=== PATIENT | female | born 1990 | race Caucasian/White ===

== ENCOUNTER 2016-06-19 11:32 | Inpatient (IN) | payer OTHER ==
[2016-06-22] MEDS ORDERED: BUTORPHANOL 1 MG/ML 1 ML VIAL IV PRN (16:34)
[2016-06-22] MEDS ORDERED: ALBUTEROL NEBULIZED 2.5 MG/3 ML INHALATION PRN (16:34)
[2016-06-22] MEDS ORDERED: DINOPROSTONE 10 MG INSERT.ER VAGINAL ONE (16:34)
[2016-06-22 17:06] VITALS: BMI 36.8
--- NOTE | 2016-06-22 17:33 | P.HPOB ---
History of Present Illness H&P Date: 06/22/16 Chief Complaint: Patient is here for postdates induction of labor. This patient is a pleasant 26-year-old 1 para 0 female estimated date of confinement 06/19/2016 estimated gestational age 40-3/7 weeks gestation who presents for postdates induction of labor. Patient's care has been uncomplicated. Review of Systems Constitutional: Denies chills, Denies fever Ears, nose, mouth and throat: Denies headache, Denies sore throat Cardiovascular: Denies chest pain, Denies shortness of breath Respiratory: Denies cough Gastrointestinal: Reports heartburn Genitourinary: Reports Menstruation: Reports amenorrhea Musculoskeletal: Denies myalgias Integumentary: Denies pruritus, Denies rash Neurological: Denies numbness, Denies weakness Psychiatric: Denies anxiety, Denies depression Endocrine: Denies fatigue, Denies weight change Past Medical History Past Medical History: Asthma History of Any Multi-Drug Resistant Organisms: None Reported Past Surgical History: Tonsillectomy Past Anesthesia/Blood Transfusion Reactions: No Reported Reaction Past Psychological History: No Psychological Hx Reported Smoking Status: Never smoker Past Drug Use History: None Reported - Past Family History Mother Family Medical History: No Reported History Medications and Allergies Home Medications Medication Instructions Recorded Confirmed Type Albuterol Inhaler [Ventolin Hfa 2 inhalation .ROUTE ONCE PRN 06/15/16 06/15/16 History Inhaler] Allergies Allergy/AdvReac Type Severity Reaction Status Date / Time hydrocodone [From Vicodin] Allergy Intermediate Anaphylaxis Verified 06/22/16 16 :33 Exam - Vital Signs Vital signs: Vital Signs Temp Pulse Resp BP 06/22/16 16:30 97.4 F L 85 16 132/85 Intake and Output 06/22/16 06/22/16 06/22/16 06:59 14:59 22:59 Other: Weight 97.522 kg Patient Weight 06/23/16 06:59 Weight 97.522 kg - OBG Physical Exam Abdomen: bowel sounds normal, no diffuse tenderness, no bruit present, no guarding noted, no hepatomegaly, no splenomegaly, no mass Vulva: both: normal Vagina: normal moisture, no discharge Cervix: Cervix is closed and uneffaced. Cervix: no lesion, no discharge Uterus: enlarged (Fundal height is consistent with a term .) Results blood work shows she is AB+, rubella immune, RPR nonreactive, hepatitis B negative, HIV nonreactive, group B strep was negative, ultrasounds have been normal, Glucola was abnormal with a normal three-hour gtt. Assessment and Plan (1) Post-dates Narrative/Plan: This is a pleasant 26-year-old 1 para 0 female 40-3/7 weeks' gestation requesting postdates induction of labor. Patient's cervix is unfavorable therefore we are going to proceed with Cervidil induction of labor. Patient does understand the increased risk of section due to the unfavorable cervix. Status: Acute
[2016-06-23] MEDS ORDERED: CARBOPROST TROMETHAMINE 250 MCG/ML 1 ML AMP IM PRN (05:11)
[2016-06-23] MEDS ORDERED: METHYLERGONOVINE 0.2 MG/ML 1 ML AMP IM PRN (05:11)
[2016-06-23] MEDS ORDERED: OXYTOCIN 30 UNITS/500 ML NS 30 UNIT in SALINE 1 500ML.BAG IV SCH (05:11)
[2016-06-23] MEDS ORDERED: LIDOCAINE 1% (PF) 10 MG/ML (30 ML SDV) SQ PRN (05:11)
[2016-06-23] MEDS ORDERED: TERBUTALINE 1 MG/ML VIAL SQ PRN (05:11)
[2016-06-23] MEDS ORDERED: OXYTOCIN 10 UNIT/ML 1 ML VIAL IM PRN (05:11)
[2016-06-23] MEDS: LACTATED RINGERS 1,000 ML IV SCH ×3 (05:30→14:12)
[2016-06-23 05:43] LABS: Basophils % (A) 0 %; CHCM 34.8; Eosinophils # (A) 0.1 k/uL (0-0.7); Eosinophils % (A) 1 %; HCT 36.1 % (34.0-46.0); HGB 12.1 gm/dL (11.4-16.0); Luc # (Auto) 0.29; Luc % (Auto) 3; Lymphocytes # (A) 1.7 k/uL (1.0-4.8); Lymphocytes % (A) 16 %; MCH 30.1 pg (25.0-35.0); MCHC 33.6 g/dL (31.0-37.0); MCV 89.5 fL (80.0-100.0); Mean Platelet Volume 8.5; Monocytes # (A) 0.5 k/uL (0-1.0); Monocytes % (A) 5 %; Neutrophils # (A) 7.6 k/uL (1.3-7.7); Neutrophils % (A) 75 %; RBC 4.04 m/uL (3.80-5.40); RDW 14.4 % (11.5-15.5); WBC 10.1 k/uL (3.8-10.6); WBC (Perox) 11.01
[2016-06-23] MEDS ORDERED: fentaNYL (PF) 50 MCG/ML 5 ML AMP ONE (08:58)
[2016-06-23] MEDS ORDERED: SODIUM CHLORIDE 0.9% 100 ML BAG ONE (08:58)
[2016-06-23] MEDS ORDERED: BUPIVACAINE (PF) 0.25% 30 ML VIAL ONE (08:58)
[2016-06-23] MEDS ORDERED: BUPIVACAINE (PF) 0.25% 25 ML, fentaNYL (PF) 200 MCG in SODIUM CHLORIDE 0.9% 71 ML EPIDURAL ONE (09:14)
[2016-06-23] MEDS ORDERED: AMPICILLIN 2,000 MG in SODIUM CHLORIDE 0.9% 100 ML IVPB STA (17:31)
[2016-06-23] MEDS ORDERED: ceFAZolin 2 GM in SODIUM CHLORIDE 0.9% 100 ML IVPB ONE (19:27)
[2016-06-23] MEDS ORDERED: CITRIC ACID-SODIUM CITRATE 15 ML CUP PO ONE (19:27)
[2016-06-23] MEDS ORDERED: fentaNYL (PF) 50 MCG/ML 2 ML AMP ONE (19:45)
[2016-06-23] MEDS ORDERED: ONDANSETRON 4 MG/2 ML VIAL ONE (19:45)
[2016-06-23] MEDS ORDERED: KETOROLAC 30 MG/ML 1 ML VIAL ONE (19:45)
[2016-06-23] MEDS ORDERED: OXYTOCIN 10 UNIT/ML 1 ML VIAL IM ONE (19:45)
[2016-06-23] MEDS ORDERED: ceFAZolin 1,000 MG VIAL ONE (19:45)
[2016-06-23] MEDS ORDERED: ePHEDrine 50 MG/ML 1 ML AMP ONE (19:45)
[2016-06-23] MEDS ORDERED: LACTATED RINGERS 1,000 ML BAG IV ONE (19:45)
[2016-06-23] MEDS ORDERED: ACETAMINOPHEN TAB 325 MG TAB PO PRN (20:34)
[2016-06-23] MEDS ORDERED: ZOLPIDEM 5 MG TAB PO PRN (20:34)
[2016-06-23] MEDS ORDERED: IBUPROFEN 600 MG TAB PO PRN (20:34)
[2016-06-23] MEDS ORDERED: diphenhydrAMINE 50 MG/ML 1 ML VIAL IVP PRN (20:34)
[2016-06-23] MEDS ORDERED: diphenhydrAMINE 25 MG CAP PO PRN (20:34)
[2016-06-23] MEDS ORDERED: SIMETHICONE 80 MG CHEWABLE PO PRN (20:34)
[2016-06-23] MEDS ORDERED: METOCLOPRAMIDE 5 MG/ML 2 ML VIAL IVP PRN (20:34)
[2016-06-23] MEDS ORDERED: NALOXONE 0.4 MG/ML 1 ML VIAL IV PRN (20:38)
[2016-06-23] MEDS ORDERED: HYDROmorphone PCA 5 MG/25 ML SYRINGE IV PRN (20:38)
--- NOTE | 2016-06-23 21:03 | P.OP ---
Date of Procedure: 06/23/16 Preoperative Diagnosis: #1: 40-4/7 week intrauterine . #2: Cephalopelvic dystocia. Postoperative Diagnosis: Same Procedure(s) Performed: Primary low transverse section. Anesthesia: epidural Surgeon: Jameson Gomes Bench Assembly Inspector #1: Gerardo Teixeira Estimated Blood Loss (ml): 800 Pathology: other Condition: stable Disposition: floor Indications for Procedure: Please see dictated H&P for intimate details of this patient's admission. Brief summary is a pleasant 26-year-old 1 para 0 female 40-4/7 weeks gestation is admitted last evening for Cervidil placement secondary to postdates . Patient is admitted has a Cervidil placed and this morning is 2 cm dilated. Patient has artificial rupture membranes for clear fluid gets to throughout the day approximately 7-8 cm dilated but gets caput and no descent past -1 station. At this time we recommend proceeding with section and patient agrees. Patient does understand the surgery and risks including risks of infection, bleeding, possible injury to bowel, bladder , vessels, and/or other organs. Patient stands risk of DVT and pulmonary embolism. All the patient's questions are answered written consent is obtained. Operative Findings: This is a vigorous viable female Apgars are 8 and 9 and delivery time is 2001 hrs. Infant was occiput transverse/occiput posterior. weight was 8 lbs. 8 oz Description of Procedure: This patient has a Alcantar catheter placed to straight drain. She subsequently taken to the operating room where her epidural is dosed up for sufficient level of surgery. With this done she has an abdominal prep and drape. Scalpel is then taken and a Pfannenstiel skin incision is then made. A second scalpel is then taken down the fascia and the fascia scored with a knife. Fascial incision extended bilaterally using the Tejada scissors. Fascia is dissected off the rectus muscles sharply. Rectus muscles are the peritoneum identified and entered sharply. Peritoneal incision extended superiorly and inferiorly without difficulty. Bladder blade is then placed. Bladder peritoneum was then taken sharply off the lower uterine segment with Metzenbaum scissors. Scalpels taken a low transverse uterine incision is then made. Using a hemostat I enter the uterine cavity bluntly and there is loss of clear fluid. Infant's head is found to be occiput posterior/ transverse. 's head is guided through the incision and mouth and nares are bulb suctioned. We then have delivery the anterior and posterior shoulder and rest this infant's body. This is a vigorous viable female Apgars are 8 and 9 delivery time is 2001 hours. After delivery of the infant the umbilical cords doubly clamped and cut and appears to be trivascular. The placenta is then manually extracted intact. Uterus is then externalized and uterine incision demarcated with Sarmiento clamps. Uterine incision then closed using 0 Vicryl running locked fashion 2 layers. Good hemostasis is noted. Bladder peritoneum was then closed using a 3-0 Vicryl running fashion. Excess fluid is removed from the abdomen and pelvis. Uterus tubes and ovaries appear normal for term gestation. Uterus placed back into the abdomen. Parietal peritoneum was then closed using 0 Vicryl running fashion. Rectus muscles are reapproximated in 0 Vicryl interrupted fashion. Fascia is then closed using 0 PDS. Fascial incision is intact and hemostatic. Subcutaneous tissues and closed using a 3-0 Vicryl. Skin is and closed using tae. Counts are correct 3. There are no complications. Infant and mother are taken together birthing suite in satisfactory condition.
[2016-06-23] MEDS ORDERED: AMPICILLIN 1,000 MG in SODIUM CHLORIDE 0.9% 50 ML IVPB SCH (22:00)
[2016-06-23] MEDS: OXYTOCIN 30 UNITS/500 ML NS 30 UNIT in SALINE 1 500ML.BAG IV SCH (23:11)
[2016-06-24] MEDS: LACTATED RINGERS 1,000 ML IV SCH ×3 (00:49→15:22)
[2016-06-24] MEDS: ceFAZolin 2 GM in SODIUM CHLORIDE 0.9% 100 ML IVPB SCH ×2 (01:00→08:50)
[2016-06-24] MEDS: OXYTOCIN 30 UNITS/500 ML NS 30 UNIT in SALINE 1 500ML.BAG IV SCH (02:24)
[2016-06-24] MEDS: KETOROLAC 30 MG/ML 1 ML VIAL IVP PRN ×3 (05:23→18:52)
--- NOTE | 2016-06-24 05:53 | P.PNOBGPC ---
Subjective - Subjective Patient reports: Reports appetite normal, Reports voiding normally, Reports pain well controlled, Reports ambulating normally : doing well Objective - Vital Signs Latest vital signs: Vital Signs Temp Pulse Resp BP Pulse Ox 06/24/16 00:00 97.4 F L 94 16 135/76 98 06/23/16 22:30 96.2 F L 78 16 118/65 97 06/23/16 22:00 97.6 F 96 16 139/77 97 06/23/16 21:30 96.2 F L 108 H 16 157/70 97 06/23/16 21:15 105 H 16 156/70 97 06/23/16 21:00 97.7 F 112 H 16 144/63 97 06/23/16 20:45 98.0 F 98 16 128/66 96 06/23/16 20:38 96 06/23/16 20:30 97.7 F 101 H 16 125/84 97 Intake and Output 06/23/16 06/23/16 06/24/16 14:59 22:59 06:59 Intake Total 2000 2950 Output Total 1300 800 Balance 2000 1650 -800 Intake: IV 2000 1650 Lactated Ringers 1,000 ml 2000 300 @ 125 mls/hr IV .Q8H [facility] Rx#:[id number] Intake, IV Titration 100 Amount ceFAZolin 2 gm In Sodium 100 Chloride 0.9% 100 ml @ 100 mls/hr IVPB Q8HR [facility] Rx#:[id number] Oral 1200 Output: Urine 500 Estimated Blood Loss 800 800 Other: Weight 97.522 kg Patient Weight 06/24/16 06:59 Weight 97.522 kg - Exam Lungs: bilateral: normal Chest: Normal S1, Normal S2 Extremities: Present: normal Abdomen: Present: normal appearance, soft. Absent: distention, tenderness Incision: Present: normal, dry, intact Uterus: Present: normal, firm Assessment and Plan (1) Post-dates Narrative/Plan: Postoperative day #1. Patient is resting without complaints. Vital signs are stable she is afebrile. Uterus is firm nontender she's having normal lochia. Plan today is to check a CBC, encouraged patient to ambulate, advance her diet. Continue routine postoperative care Current Visit: Yes Status: Acute Code(s): O48.0 - POST-TERM SNOMED Code(s): 33748323 (2) delivery delivered Current Visit: Yes Status: Acute Code(s): O82 - ENCOUNTER FOR DELIVERY WITHOUT INDICATION SNOMED Code(s): 952648367
[2016-06-24] MEDS ORDERED: Acetaminophen-Codeine 300-30mg TAB PO PRN (05:58)
[2016-06-24 08:14] LABS: Basophils % (A) 0 %; CH 30.8; CHCM 33.9; Eosinophils % (A) 0 %; HCT 28.2 % (34.0-46.0); HDW 2.91; Luc # (Auto) 0.18; Luc % (Auto) 2; Lymphocytes # (A) 1.1 k/uL (1.0-4.8); Lymphocytes % (A) 10 %; MCH 30.7 pg (25.0-35.0); MCHC 33.6 g/dL (31.0-37.0); MCV 91.3 fL (80.0-100.0); Mean Platelet Volume 9.1; Monocytes # (A) 0.6 k/uL (0-1.0); Monocytes % (A) 5 %; Neutrophils % (A) 83 %; RBC 3.09 m/uL (3.80-5.40); RDW 14.4 % (11.5-15.5); WBC 10.8 k/uL (3.8-10.6); WBC (Perox) 11.69
[2016-06-24 08:16] LABS: HGB 9.5 gm/dL (11.4-16.0)
[2016-06-24] MEDS: SENNOSIDES-DOCUSATE SODIUM 1 EACH TAB PO SCH ×2 (08:51→22:58)
[2016-06-24] MEDS: Acetaminophen-Codeine 300-30mg TAB PO PRN (15:20)
[2016-06-25] MEDS: Acetaminophen-Codeine 300-30mg TAB PO PRN ×2 (02:03→08:12)
--- NOTE | 2016-06-25 07:02 | P.PNOBGPC ---
Subjective - Subjective Patient reports: Reports appetite normal, Reports voiding normally, Reports pain well controlled, Reports ambulating normally : doing well Objective - Vital Signs Latest vital signs: Vital Signs Temp Pulse Resp BP Pulse Ox 06/25/16 00:30 98.6 F 85 11 L 107/59 06/24/16 20:00 98.1 F 100 10 L 113/64 06/24/16 16:00 98.3 F 102 H 16 122/70 06/24/16 12:00 97.9 F 98 18 121/68 98 06/24/16 08:00 97.5 F L 86 16 119/74 - Exam Lungs: bilateral: normal Chest: Normal S1, Normal S2 Extremities: Present: normal Abdomen: Present: normal appearance, soft. Absent: distention, tenderness Incision: Present: normal, dry, intact Uterus: Present: normal, firm - Labs Labs: Abnormal Lab Results - Last 24 Hours (Table) 06/24/16 Range/Units 07:46 WBC 10.8 H (3.8-10.6) k/uL RBC 3.09 L (3.80-5.40) m/uL Hgb 9.5 L D (11.4-16.0) gm/dL Hct 28.2 L (34.0-46.0) % Plt Count 146 L (150-450) k/uL Neutrophils # 9.0 H (1.3-7.7) k/uL Assessment and Plan (1) Post-dates Narrative/Plan: Postoperative day #2. Patient is resting without new complaints. Vital signs are stable she is afebrile. She's tolerating regular diet, ambulating, urinating without difficulty. Patient is considering going home later today. My impression is that this is a normal postoperative course, and she is stable to go home today if she wishes. Current Visit: Yes Status: Acute Code(s): O48.0 - POST-TERM SNOMED Code(s): 82332614 (2) delivery delivered Current Visit: Yes Status: Acute Code(s): O82 - ENCOUNTER FOR DELIVERY WITHOUT INDICATION SNOMED Code(s): 707705854
--- NOTE | 2016-06-25 07:05 | P.DS ---
Providers Date of admission: 06/22/16 16:21 Expected date of discharge: 06/25/16 Attending physician: Jameson Gomes Primary care physician: Taiwo Chaves - Discharge Diagnosis(es) (1) Post-dates Current Visit: Yes Status: Acute (2) delivery delivered Current Visit: Yes Status: Acute Hospital Course: Please see dictated H&P for intimate details of this patient's admission. Brief summary is a pleasant 26-year-old 1 para 0 female 40-4/7 weeks gestation admitted for two-stage induction of labor subsequent was on have a primary section for cephalopelvic dystocia. Please see dictated delivery note/operative note. Postoperative patient does well and on postoperative 2 is felt be stable for discharge home follow up with me in 1 week for an incision check. Procedures: Induction of labor and primary low transverse section. Patient Condition at Discharge: Good Plan - Discharge Summary New Discharge Prescriptions: Acetaminophen-Codeine 300-30mg [Tylenol w/codeine #3] 1 - 2 each PO Q4HR PRN # 40 tab PRN Reason: Pain Ibuprofen [Motrin] 600 mg PO Q6HR PRN #40 tab PRN Reason: Mild Pain Or Fever >= 100.5 Discharge Medication List Albuterol Inhaler [Ventolin Hfa Inhaler] 2 inhalation .ROUTE ONCE PRN 06/15/16 [ History] Acetaminophen-Codeine 300-30mg [Tylenol w/codeine #3] 1 - 2 each PO Q4HR PRN # 40 tab 06/24/16 [Rx] Ibuprofen [Motrin] 600 mg PO Q6HR PRN #40 tab 06/24/16 [Rx] Follow up Appointment(s)/Referral(s): Jameson Gomes MD [STAFF PHYSICIAN] - 07/04/16 8:30 am (Patient also has a 6 weeks' check on August 03 9:30 AM.) Patient Instructions/Handouts: (DC) Activity/Diet/Wound Care/Special Instructions: No strenuous activity or heavy lifting for 6 weeks. Please call if any fever, chills, excessive vaginal bleeding, and/or abdominal pain. No intercourse for 6 weeks. Discharge Disposition: HOME SELF-CARE
[2016-06-25] MEDS: SENNOSIDES-DOCUSATE SODIUM 1 EACH TAB PO SCH (08:12)
[2016-06-25 08:40] VITALS: BP 136/70; PULSE 88; RESP 16; TEMP 98.3
[2016-06-25] MEDS: LACTATED RINGERS 1,000 ML IV SCH (09:54)
== END 2016-06-25 13:00 | disposition home or self-care (01) | DRG 766 ==
LOC: 4FBP 06-22 16:21
PROVIDERS: ADMIT Obstetrics & Gynecology; ATTEND Obstetrics & Gynecology
DX: O48.0 Post-term pregnancy (principal); O66.9 Obstructed labor, unspecified; J45.909 Unspecified asthma, uncomplicated; Z37.0 Single live birth; O99.52 Diseases of the respiratory system complicating childbirth; Z3A.40 40 weeks gestation of pregnancy; Z79.899 Other long term (current) drug therapy; Z88.5 Allergy status to narcotic agent
CPT/HCPCS: 85025; 88307

== ENCOUNTER 2017-11-23 05:44 | Inpatient (IN) | payer OTHER ==
--- NOTE | 2017-11-22 07:59 | P.HPOB ---
History of Present Illness H&P Date: 11/22/17 Chief Complaint: Repeat C/S This patient is a pleasant 27 yr female EDC 11/24/2017 estimated gestational age 39 6/7 weeks who presents for elective repeat C/S. has been complicated by polyhydraminos (32cm) of unknown etiology that was diagnosed at 35wks. She has been watched with NSTs. She also was late to seek care, but this was due to insurance issues. Review of Systems Gastrointestinal: Reports heartburn Genitourinary: Reports Menstruation: Reports amenorrhea Past Medical History Past Medical History: Asthma History of Any Multi-Drug Resistant Organisms: None Reported Past Surgical History: Section, Tonsillectomy Past Anesthesia/Blood Transfusion Reactions: No Reported Reaction Past Psychological History: No Psychological Hx Reported Smoking Status: Never smoker Past Alcohol Use History: None Reported Past Drug Use History: None Reported - Past Family History Mother Family Medical History: No Reported History Medications and Allergies Home Medications Medication Instructions Recorded Confirmed Type Albuterol Inhaler [Ventolin Hfa 2 inhalation .ROUTE ONCE PRN 06/15/16 06/15/16 History Inhaler] Acetaminophen-Codeine 300-30mg 1 - 2 each PO Q4HR PRN #40 tab 06/24/16 Rx [Tylenol w/codeine #3] Ibuprofen [Motrin] 600 mg PO Q6HR PRN #40 tab 06/24/16 Rx Allergies Allergy/AdvReac Type Severity Reaction Status Date / Time hydrocodone [From Vicodin] Allergy Intermediate Anaphylaxis Verified 06/22/16 16 :33 Exam - OBG Physical Exam Abdomen: bowel sounds normal, no diffuse tenderness, no bruit present, no guarding noted, no hepatomegaly, no splenomegaly, no mass Vulva: both: normal Vagina: normal moisture, no discharge Cervix: no lesion, no discharge Uterus: enlarged (Fundal height is 45cm) Results labs: AB positive, Rubella Immune, [id number] negative, Glucola 158 (normal 3hr GTT 84, 178, 116, 122), GBS was positive. Ultrasound shows polyhydraminos with BRENDA 30-32 and LGA. Assessment and Plan Assessment: This is a pleasant 27 yr old female 39 and 6/7 weeks gestation who presents for elective repeat cesearan section. She and I have discussed this surgery and risks: infection, bleeding, possible injury to bowel/bladder/ vessels and/or other organs. She understands the risks of DVT/PE. All of the patients questions were answered and a written consent was obtained. (1) Previous delivery affecting Status: Acute Code(s): O34.219 - MATERNAL CARE FOR UNSP TYPE SCAR FROM PREVIOUS DEL SNOMED Code(s): 732229124 (2) Polyhydramnios affecting Status: Acute Code(s): O40.9XX0 - POLYHYDRAMNIOS, UNSP TRIMESTER, NOT APPLICABLE OR UNSP SNOMED Code(s): 97130651 (3) Group B streptococcal carriage complicating Status: Acute Code(s): O99.820 - STREPTOCOCCUS B CARRIER STATE COMPLICATING SNOMED Code(s): 022408882745606
[2017-11-22 15:20] VITALS: BMI 39.4
[2017-11-23] MEDS ORDERED: LACTATED RINGERS 1,000 ML IV ONE (05:52)
[2017-11-23] MEDS ORDERED: LACTATED RINGERS 1,000 ML IV SCH (05:52)
[2017-11-23] MEDS ORDERED: CITRIC ACID-SODIUM CITRATE 15 ML CUP PO ONE (05:52)
[2017-11-23 06:15] LABS: Basophils % (A) 0 %; Eosinophils # (A) 0.1 k/uL (0-0.7); Eosinophils % (A) 1 %; Lymphocytes # (A) 1.7 k/uL (1.0-4.8); Lymphocytes % (A) 21 %; MCH 27.9 pg (25.0-35.0); MCHC 33.3 g/dL (31.0-37.0); MCV 83.8 fL (80.0-100.0); Mean Platelet Volume 8.6; Monocytes # (A) 0.7 k/uL (0-1.0); Monocytes % (A) 8 %; Neutrophils # (A) 5.5 k/uL (1.3-7.7); Neutrophils % (A) 68 %; Platelet Count 224 k/uL (150-450); Poikilocytosis Slight; RBC 3.93 m/uL (3.80-5.40); RDW 14.8 % (11.5-15.5); WBC 8.1 k/uL (3.8-10.6)
[2017-11-23] MEDS ORDERED: ceFAZolin IN SWFI 2 GM/20 ML SYRINGE IVP ONE (07:15)
[2017-11-23] MEDS ORDERED: OXYTOCIN 10 UNIT/ML 1 ML VIAL ONE (07:51)
[2017-11-23] MEDS ORDERED: PHENYLEPHRINE-0.9% NACL SYG 1 MG/10 ML SYRINGE ONE (07:51)
[2017-11-23] MEDS ORDERED: ONDANSETRON 4 MG/2 ML VIAL ONE (07:51)
[2017-11-23] MEDS ORDERED: MORPHINE SULFATE (PF) 0.3 MG/0.3 ML SYR ONE (07:51)
[2017-11-23] MEDS ORDERED: ePHEDrine SULFATE/0.9% NACL/PF 50 MG/5 ML SYRINGE IV ONE (07:51)
[2017-11-23] MEDS ORDERED: NALBUPHINE 10 MG/ML AMPUL ONE (07:51)
[2017-11-23] MEDS ORDERED: NALOXONE 0.4 MG/ML 1 ML VIAL IV PRN ×2 (08:11→09:47)
[2017-11-23] MEDS ORDERED: diphenhydrAMINE 50 MG/ML 1 ML VIAL IVP PRN ×2 (08:11→09:47)
[2017-11-23] MEDS ORDERED: MORPHINE SULFATE 2 MG/ML SYRINGE IVP PRN (08:11)
[2017-11-23] MEDS ORDERED: NALBUPHINE 10 MG/ML AMPUL IV PRN (08:11)
--- NOTE | 2017-11-23 08:36 | P.OP ---
Date of Procedure: 11/23/17 Preoperative Diagnosis: #1: 39-6/7 weeks . #2: Previous section desires repeat. #3: Polyhydramnios Postoperative Diagnosis: Same Procedure(s) Performed: Repeat low transverse section. Anesthesia: spinal Surgeon: Jameson Gomes Crate Tier #1: Leanne Abdi Estimated Blood Loss (ml): 800 Pathology: other (Placenta) Condition: stable Disposition: floor Indications for Procedure: Please see dictated H&P for intimate details of this patient's admission. Brief summary this pleasant 27-year-old 2 para 1 female 39-6/7 weeks gestation admitted to labor and delivery for elective repeat section. Patient I discussed the surgery and risks including risks of infection, bleeding , possible injury bowel, bladder, vessels, and/or other organs. Patient understands risk of DVT and pulmonary embolism. All the patient's questions are answered and a written consent is obtained. Operative Findings: This is a vigorous viable female Apgars 9 and 9 delivery time is 0807 hrs. has spontaneous respiration and good cry and grossly appeared normal. Description of Procedure: This patient had a Alcantar catheter placed to straight drain. She is subsequently taken to the operating room where she is sat up and spinal anesthetic is administered without incident. With an adequate level of anesthesia she has abdominal prep and drape. Scalpels then taken in the previous Pfannenstiel incision is excised. A second scalpel is taken down the fascia the fascia scored with a knife. Fascial incision extended bilaterally using the Tejada scissors. Rectus muscles are then peritoneum identified and entered sharply. Peritoneal incision extended superior and inferior without difficulty. Bladder blade is then placed. Bladder peritoneum was dissected off the lower uterine segment. Scalpels and taken low transverse uterine incision is then made. Using a hemostat I into the uterine cavity and there is loss of a large amount of clear fluid consistent with polyhydramnios. The 's head is then guided into the incision with fundal pressure delivered. Mouth and nares are bulb suctioned. There is no evidence of a nuchal cord. Then have delivery anterior and posterior shoulder and rest this 's body. This is a vigorous viable female . Apgars are 9 and 9 delivery time is 0807 hrs. After delivery of the infant the umbilical cords doubly clamped and cut. Infant is then handed off to the nurses in attendance. Placenta is then manually extracted intact. Uterus is then externalized and uterine margins demarcated with Sarmiento clamps. Incision is then closed using 0 Vicryl running locked fashion 2 layers. Excellent hemostasis is noted. Excess fluid is then removed from the abdomen and pelvis. Uterus placed back into the abdomen. Final inspection shows good hemostasis. The parietal peritoneum was then identified with hemostats and closed using 0 Vicryl running fashion. Rectus muscles reapproximated using 0 Vicryl interrupted fashion. Fascia is then closed using 0 PDS in a running fashion. Fascial incision is intact and hemostatic. Subcutaneous tissues and closed using a 3-0 Vicryl. Denhoff and a sterile dressing is then applied. All counts are correct 3. There are no complications. Infant and mother are stable birthing room.
[2017-11-23] MEDS ORDERED: METOCLOPRAMIDE 5 MG/ML 2 ML VIAL IVP PRN (09:47)
[2017-11-23] MEDS ORDERED: OXYTOCIN 20 UNITS/1000 ML NS 1,000 ML IV SCH (09:47)
[2017-11-23] MEDS ORDERED: diphenhydrAMINE 25 MG CAP PO PRN (09:47)
[2017-11-23] MEDS ORDERED: KETOROLAC 30 MG/ML 1 ML VIAL IVP PRN (09:47)
[2017-11-23] MEDS ORDERED: ONDANSETRON 4 MG/2 ML VIAL IVP PRN (09:47)
[2017-11-23] MEDS ORDERED: ZOLPIDEM 5 MG TAB PO PRN (09:47)
[2017-11-23] MEDS: LACTATED RINGERS 1,000 ML IV SCH (17:07)
[2017-11-23] MEDS: IBUPROFEN 600 MG TAB PO PRN (20:36)
[2017-11-24] MEDS: SENNOSIDES-DOCUSATE SODIUM 1 EACH TAB PO SCH ×4 (00:28→22:03)
[2017-11-24] MEDS: LACTATED RINGERS 1,000 ML IV SCH ×2 (00:28→06:01)
[2017-11-24] MEDS: IBUPROFEN 600 MG TAB PO PRN ×3 (04:18→20:54)
--- NOTE | 2017-11-24 05:31 | P.PN ---
Progress Note - Text Progress Note Date: 11/24/17 27 yo female status post . Post-op day #1. Patient received intrathecal Duramorph. Patient was seen today, sitting up in bed no complaints, pain VAS score 0/10, no headache, no itching, no nausea and vomiting. Assessment and plan: Doing well in general no complications from anesthesia.
--- NOTE | 2017-11-24 06:15 | P.PNOBGPC ---
Subjective - Subjective Patient reports: Reports appetite normal, Reports voiding normally, Reports pain well controlled, Reports ambulating normally : doing well Objective - Vital Signs Latest vital signs: Vital Signs Temp Pulse Resp BP Pulse Ox 11/24/17 05:00 12 11/24/17 04:00 98.5 F 70 14 115/50 11/24/17 03:00 14 11/24/17 01:00 16 11/23/17 23:58 98.3 F 90 16 124/60 98 11/23/17 21:00 16 11/23/17 20:00 97.8 F 86 16 130/74 99 11/23/17 18:28 16 11/23/17 17:00 16 98 11/23/17 16:00 97.7 F 80 16 120/75 11/23/17 15:00 16 11/23/17 13:11 98 11/23/17 12:50 16 11/23/17 12:00 98.4 F 84 16 120/69 98 11/23/17 11:11 16 98 11/23/17 10:36 68 16 112/64 98 11/23/17 10:06 64 16 117/58 98 11/23/17 09:36 61 16 91/52 100 11/23/17 09:21 61 16 100/46 96 11/23/17 09:06 58 L 16 103/46 100 11/23/17 08:51 79 16 104/57 98 11/23/17 08:36 97.0 F L 86 16 113/53 98 Intake and Output 11/23/17 11/23/17 11/24/17 14:59 22:59 06:59 Intake Total 240 100 Output Total 1400 2200 800 Balance -1160 -2200 -700 Intake: Oral 240 100 Output: Urine 600 2200 800 Estimated Blood Loss 800 Other: Voiding Method Toilet # Voids 1 1 1 - Exam Lungs: bilateral: normal Chest: Normal S1, Normal S2 Extremities: Present: normal Abdomen: Present: normal appearance, soft. Absent: distention, tenderness Incision: Present: normal, dry, intact Uterus: Present: normal, firm - Labs Labs: Abnormal Lab Results - Last 24 Hours (Table) 11/23/17 Range/Units 06:00 Hgb 11.0 L (11.4-16.0) gm/dL Hct 33.0 L (34.0-46.0) % Assessment and Plan Assessment: Post operative day #1. Patient is resting without complaints. Vital signs are stable and she is afebrile. Uterus is firm nontender and her incision is intact and dry. CBC is pending at this time. My impression this is a normal postoperative course. Plan is to continue routine postoperative care, check a CBC, continue regular diet, and allow the patient to shower. Most likely patient will go home tomorrow. (1) Previous delivery affecting Current Visit: Yes Status: Acute Code(s): O34.219 - MATERNAL CARE FOR UNSP TYPE SCAR FROM PREVIOUS DEL SNOMED Code(s): 578109476 (2) Polyhydramnios affecting Current Visit: Yes Status: Acute Code(s): O40.9XX0 - POLYHYDRAMNIOS, UNSP TRIMESTER, NOT APPLICABLE OR UNSP SNOMED Code(s): 62275810 (3) Group B streptococcal carriage complicating Current Visit: Yes Status: Acute Code(s): O99.820 - STREPTOCOCCUS B CARRIER STATE COMPLICATING SNOMED Code(s): 766255704807376
[2017-11-24 07:24] LABS: Basophils % (A) 0 %; Eosinophils % (A) 1 %; HCT 25.1 % (34.0-46.0); Lymphocytes % (A) 11 %; MCH 28.5 pg (25.0-35.0); MCHC 33.6 g/dL (31.0-37.0); MCV 84.7 fL (80.0-100.0); Mean Platelet Volume 8.8; Monocytes # (A) 0.6 k/uL (0-1.0); Monocytes % (A) 6 %; Neutrophils # (A) 7.6 k/uL (1.3-7.7); Neutrophils % (A) 81 %; Platelet Count 172 k/uL (150-450); Poikilocytosis Slight; RBC 2.97 m/uL (3.80-5.40); WBC 9.4 k/uL (3.8-10.6)
[2017-11-24 07:27] LABS: HGB 8.5 gm/dL (11.4-16.0)
[2017-11-24 09:55] VITALS: RESP 16
[2017-11-24] MEDS: ACETAMINOPHEN TAB 325 MG TAB PO PRN (16:13)
[2017-11-25] MEDS: LACTATED RINGERS 1,000 ML IV SCH (01:48)
[2017-11-25] MEDS: IBUPROFEN 600 MG TAB PO PRN (04:18)
[2017-11-25 08:30] VITALS: BP 114/62; PULSE 78; TEMP 98.6
[2017-11-25] MEDS: ACETAMINOPHEN TAB 325 MG TAB PO PRN (08:30)
[2017-11-25] MEDS: SENNOSIDES-DOCUSATE SODIUM 1 EACH TAB PO SCH (08:30)
--- NOTE | 2017-11-25 12:05 | P.DS ---
Providers Date of admission: 11/23/17 05:44 Expected date of discharge: 11/25/17 Attending physician: Jameson Gomes Primary care physician: [facility] Course: This is a 27-year-old female 2 para 1 at 39-6/7 weeks who presented for scheduled repeat section. She underwent a repeat low transverse section under spinal Duramorph anesthesia and delivered a viable female with scores of 9 at 1 minute and 9 at 5 minutes and weight of 9 lbs. 7 oz. Her postoperative course has been essentially uncomplicated. She has been passing flatus and bowel movement. Lochia is decreasing. Pain is not been well controlled with ibuprofen. She would like to add a narcotic to help with her pain. She is breast-feeding. Vital signs are stable. Abdomen is soft with positive bowel sounds 4. Incision is clean dry and intact. Extremities show negative Homans. Impression is status post repeat low transverse section postoperative day #2. Plan is to discharge home today. Toño will be removed and Steri-Strips placed prior to discharge. Routine postoperative and instructions are given. She is advised to follow up with Dr. Gomes in approximately 1-2 weeks for a postoperative check and in 6 weeks for a check. She is advised to call the office if she has any further questions or concerns prior to her appointment time. She has been given a prescription for ibuprofen and a breast pump she will also received a 3 day supply of Tylenol No. 3 to use as needed. Procedures: Repeat low transverse section on 11/23/2017 Patient Condition at Discharge: Stable Plan - Discharge Summary Discharge Rx Participant: Yes New Discharge Prescriptions: New Ibuprofen [Motrin] 600 mg PO Q6HR PRN #40 tab PRN Reason: Mild Pain Or Fever >= 100.5 Acetaminophen-Codeine 300-30mg [Tylenol w/codeine #3] 1 tab PO Q4H PRN 3 Days #18 tablet PRN Reason: Moderate To Severe Pain No Action Albuterol Inhaler [Ventolin Hfa Inhaler] 2 puff INHALATION TID PRN PRN Reason: Shortness Of Breath Vitamin 1 tab PO DAILY Discharge Medication List Albuterol Inhaler [Ventolin Hfa Inhaler] 2 puff INHALATION TID PRN 06/15/16 [ History] Vitamin 1 tab PO DAILY 11/22/17 [History] Ibuprofen [Motrin] 600 mg PO Q6HR PRN #40 tab 11/24/17 [Rx] Acetaminophen-Codeine 300-30mg [Tylenol w/codeine #3] 1 tab PO Q4H PRN 3 Days # 18 tablet 11/25/17 [Rx] Follow up Appointment(s)/Referral(s): Jameson Gomes MD [STAFF PHYSICIAN] - 11/27/17 1:30 pm (Patient also has a visit on January 08 at 8:45 AM.) Patient Instructions/Handouts: (DC) Activity/Diet/Wound Care/Special Instructions: No strenuous activities or heavy lifting for 6 weeks. No intercourse or anything per vagina for 6 weeks. Please call if any fever, chills, excessive vaginal bleeding, and/or abdominal pain Discharge Disposition: HOME SELF-CARE
== END 2017-11-25 12:30 | disposition home or self-care (01) | DRG 765 ==
LOC: 4FBP 05:44
PROVIDERS: ADMIT Obstetrics & Gynecology; ATTEND Obstetrics & Gynecology
PROC: 10D00Z1 Extraction of Products of Conception, Low, Open Approach (ICD-10-PCS; principal; 2017-11-23 08:00)
DX: O34.211 Maternal care for low transverse scar from previous cesarean delivery (principal); O40.3XX0 Polyhydramnios, third trimester, not applicable or unspecified; Z37.0 Single live birth; O99.824 Streptococcus B carrier state complicating childbirth; Z3A.39 39 weeks gestation of pregnancy; J45.909 Unspecified asthma, uncomplicated; O99.52 Diseases of the respiratory system complicating childbirth; Z79.899 Other long term (current) drug therapy; Z88.5 Allergy status to narcotic agent
CPT/HCPCS: 85025; 86850; 86900; 86901; 88307